=== PATIENT | male | born 1975 | race Caucasian/White ===

== ENCOUNTER 2020-02-01 10:21 | Outpatient (RCR) | payer BC | END 2020-05-01 | disposition home or self-care (01) | LOC: CARD 10:21 | PROVIDERS: ATTEND Internal Medicine | DX: R00.2 Palpitations (principal); I49.3 Ventricular premature depolarization; R00.1 Bradycardia, unspecified | CPT/HCPCS: 93225; 93226 ==

== ENCOUNTER 2022-08-04 20:34 | Emergency (ER) | payer BC ==
[~2022-08-04] VITALS: Ht 198 cm; Wt 99.8 kg
--- NOTE | 2022-08-04 20:55 | ED Upper Extremity ---
General Chief Complaint: Upper Extremity Stated Complaint: POSSIBLE BROKEN ARM Source: patient Exam Limitations: no limitations (ODALYS CORDOVA APRN) History of Present Illness Date Seen by Provider: Aug 04, 2022 Time Seen by Provider: 20:45 Initial Comments 47-year-old male presents to the ED with right wrist pain. States he fell while playing basketball [place] 1940 and landed on his right hand, felt a "pop" in that wrist when he fell. States he took 400 mg of ibuprofen about 15 to 20 minutes prior to arrival. Denies any systemic symptoms, denies fevers, chest pain, didier rtness of air, abdominal pain, nausea/vomiting. Denies any past medical history, but has not been to the doctor in a long time. He only takes Claritin for seasonal allergies. (ODALYS CORDOVA APRN) Allergies and Home Medications Patient Home Medication List Home Medication List Reviewed: Yes (ODALYS CORDOVA APRN) Review of Systems Constitutional: see HPI (ODALYS CORDOVA APRN) Past Clokxrw-Jtrvgs-Avhcbt Hx Patient Social History Tobacco Use?: No Use of E-Cig and/or Vaping dev: No Substance use?: No Alcohol Use?: No Pt feels they are or have been: No (ODALYS CORDOVA APRN) Immunizations Up To Date Influenza Vaccine Up-to-Date: No; Not Current (ODALYS CORDOVA APRN) Past Medical History Surgery/Hospitalization HX: DENIES (ODALYS CORDOVA APRN) Physical Exam Vital Signs Vital Signs - First Documented 08/04/22 20:39 Temp 36.5 Pulse 97 Resp 18 B/P (MAP) 143/91 (108) Pulse Ox 98 O2 Delivery Room Air (DORIAN MORROW DO) Vital Signs Capillary Refill : (ODALYS CORDOVA APRN) Height, Weight, BMI Height: '" Weight: lbs. oz. kg; BMI Method: General Appearance: WD/WN, no apparent distress Neck: supple, normal inspection Cardiovascular: regular rate, rhythm, no edema, no gallop, no JVD Respiratory: lungs clear, normal breath sounds, no respiratory distress, no accessory muscle use Wrist: No no evidence of injury (Right wrist, sensation intact distally, cap refill less than 2 seconds, radial pulse intact), No abrasions; Yes limited ROM, Yes pain, Yes soft tissue tenderness, Yes swelling Hand: non-tender, no evidence of injury, normal ROM, Right Neurologic/Psychiatric: alert, normal mood/affect, oriented x 3 Skin: normal color, warm/dry (ODALYS CORDOVA APRN) Procedures/Interventions Splinting and Joint Reduction : Pre-Proc Neuro Vasc Exam: normal Post-Proc Neuro Vasc Exam: normal Progress Sugar-tong splint placed to right arm. Sensation intact in fingers, cap refill less than 3 seconds. (ODALYS CORDOVA APRN) Progress/Results/Core Measures Results/Orders Vital Signs/I&O 08/04/22 08/04/22 20:39 22:17 Temp 36.5 Pulse 97 87 Resp 18 16 B/P (MAP) 143/91 (108) 135/87 Pulse Ox 98 98 O2 Delivery Room Air Room Air (DORIAN MORROW DO) Progress Progress Note #1: Time: 20:54 Progress Note Patient seen and evaluated, resting in recliner, no acute distress. Based on exam and symptoms, concern for right wrist fracture or sprain. X-ray ordered of the right wrist. Patient denies any pain in his hand, forearm, or elbow. Sensation intact distally, cap refill less than 3 seconds, radial pulse intact. Limited range of motion due to pain. Progress Note #2: Time: 21:58 Progress Note X-ray reviewed, comminuted intra-articular fracture of the distal radius. Sugar-tong splint placed. Sling provided for patient. Sensation intact distally, cap refill less than 3 seconds. Patient given discharge instructions and return precautions. (ODALYS CORDOVA APRN) Diagnostic Imaging Diagonstic Imaging: Xray Plain Films/CT/US/NM/MRI: other (wrist) Comments [facility], [place] NAME: LISA WARREN [facility] REC#: [id number] PT STATUS: REG ER : 1975 PHYSICIAN: ODALYS CORDOVA APRN ADMIT DATE: 08/04/22/ER Signed Date of Exam:08/04/22 WRIST, RIGHT, 3 VIEWS OR MORE INDICATION: Pain. FINDINGS: There is a comminuted intra-articular fracture of the distal radius. The alignment is otherwise normal. No other fracture or dislocation. Soft tissues are unremarkable. IMPRESSION: Comminuted intra-articular fracture of the distal radius. Dictated by: Dictated on workstation # [id number] Dict: 08/04/222101 Trans: 08/04/222114 [facility] [id number] Interpreted by: SERGIO JIMENEZ MD Electronically signed by: SERGIO JIMENEZ MD 08/04/222114 (ODALYS CORDOVA APRN) Departure Impression Primary Impression: Fracture of radius Disposition: HOME, SELF-CARE Condition: Stable Departure-Patient Inst. Decision time for Depature: 21:59 (ODALYS CORDOVA APRN) Referrals: NO,LOCAL PHYSICIAN (PCP) Primary Care Physician REHANA GARCIA MD Patient Instructions: Radius Fracture (DC) Add. Discharge Instructions: Elevate your arm to help prevent swelling. Do not get your splint wet, cover with a plastic bag when showering. If your fingers become numb or discolored, you may loosen the Kayden bandage. You may take Tylenol or ibuprofen as needed for pain. Follow-up with orthopedics. Return if you have worsening pain, numbness, tingling, change in the color of your fingers that is not relieved by loosening the Kayden bandage, or any other new, concerning, or worsening symptoms. All discharge instructions reviewed with patient and/or family. Voiced understanding. ATTENDING PHYSICIAN NOTE: I WAS PHYSICALLY PRESENT ER PHYSICIAN, BUT I WAS NOT INVOLVED IN ANY DECISION MAKING OR ANY CARE OF THIS PATIENT, AND I AM NOT COLLABORATING PHYSICIAN. (DORIAN MORROW DO) ODALYS CORDOVA APRN Aug 04, 2022 20:55 DORIAN MORROW DO Aug 05, 2022 05:29
--- NOTE | 2022-08-04 21:05 | Diagnostic Imaging Report ---
INDICATION: Pain. FINDINGS: There is a comminuted intra-articular fracture of the distal radius. The alignment is otherwise normal. No other fracture or dislocation. Soft tissues are unremarkable. IMPRESSION: Comminuted intra-articular fracture of the distal radius. Dictated by: Dictated on workstation # [id number]
[2022-08-04 22:17] VITALS: BP 135/87
== END 2022-08-04 22:17 | disposition home or self-care (01) ==
LOC: EDUNIT# 20:34 → ER 20:35
DX: S52.571A Other intraarticular fracture of lower end of right radius, initial encounter for closed fracture (principal); J30.2 Other seasonal allergic rhinitis; Z28.310 Unvaccinated for COVID-19; W18.39XA Other fall on same level, initial encounter; X50.1XXA Overexertion from prolonged static or awkward postures, initial encounter; Y93.67 Activity, basketball; Y92.310 Basketball court as the place of occurrence of the external cause
CPT/HCPCS: 29125; 73110